=== PATIENT | male | born 1950 | race Caucasian/White ===

== ENCOUNTER → 2016-11-10 | Outpatient (CLI) | payer OTHER ==
[~2016-11-10] MED LIST: AMLO2.5C PO; LISI-526 PO; VYT/1040 PO; ZLFUNK PO
== END | disposition home or self-care (01) ==
LOC: C.CPL 10:57
DX: Z01.810 Encounter for preprocedural cardiovascular examination (principal); R00.1 Bradycardia, unspecified

== ENCOUNTER → 2016-11-27 | Outpatient (CLI) | payer OTHER ==
--- NOTE | 2016-11-27 16:06 | DIAGNOSTIC IMAGING REPORT ---
RIGHT LOWER EXTREMITY VENOUS DOPPLER HISTORY: RT LEG, PAIN/SWELLING, R/O DVT Right COMPARISON STUDY: None. FINDINGS: There is normal compressibility, flow, and augmentation within the right lower extremity deep venous system. A few small subcutaneous fluid collection within the right knee with the largest measuring 4.6 x 4.4 x 1.1 cm. IMPRESSION: No DVT within the right lower extremity. A few small subcutaneous fluid collections at the right knee. This could be due to the recent postoperative change. Electronically signed by: Dipesh Becker M.D. 11/27/2016 4:05 PM Dictated Date/Time: 11/27/2016 4:04 PM
== END | disposition home or self-care (01) ==
LOC: C.ULTR 15:07
DX: M25.461 Effusion, right knee (principal)

== ENCOUNTER → 2017-11-26 | Day surgery (SDC) | payer OTHER ==
[2017-11-09 11:34] VITALS: BMI 26.0
--- NOTE | 2017-11-12 15:51 | PAT Medication Instructions ---
Service Date Nov 12, 2017. Current Home Medication List Amlodipine Besylate-Benazepril (Amlodipine Besylate/Benaz), 1 CAP PO DAILY Celecoxib (CeleBREX), 200 MG PO BID Sertraline (Zoloft), 50 MG PO DAILY Simvastatin (Simvastatin), 1 TAB PO DAILY Medication Instructions For Your Scheduled Surgery - Check with surgeon for instructions: Celecoxib (CeleBREX), 200 MG PO BID - Continue as directed: Amlodipine Besylate-Benazepril (Amlodipine Besylate/Benaz), 1 CAP PO DAILY Sertraline (Zoloft), 50 MG PO DAILY Simvastatin (Simvastatin), 1 TAB PO DAILY If you have any questions please call us at [phone] or [phone] or [phone]
[2017-11-13 14:13] VITALS: BMI 28.0
[2017-11-13 15:16] LABS: BASO ABS # 0.05 K/uL (0-0.2); EOS % 2.8 %; EOS ABS # 0.14 K/uL (0-0.5); HEMATOCRIT 40.5 % (42-52); HEMOGLOBIN 13.6 g/dL (14.0-18.0); IG# 0.01 K/uL (0.00-0.02); LYMPH ABS # 1.83 K/uL (1.2-3.4); MEAN CELL VOLUME 93.5 fL (80-100); MEAN CORPUSCULAR HEMOGLOBIN 31.4 pg (25-34); MEAN CORPUSCULAR HGB CONC 33.6 g/dl (32-36); MEAN PLATELET VOLUME 9.7 fL (7.4-10.4); MONO % 9.6 %; MONO ABS # 0.49 K/uL (0.11-0.59); NEUT % 50.4 %; NEUT ABS # 2.56 K/uL (1.4-6.5); PLATELET COUNT 182 K/uL (130-400); RED CELL DISTRIBUTION WIDTH CV 13.6 % (11.5-14.5); RED CELL DISTRIBUTION WIDTH SD 46.7 fL (36.4-46.3); WHITE BLOOD COUNT 5.08 K/uL (4.8-10.8)
[2017-11-13 15:24] LABS: CREATININE 1.07 mg/dl (0.60-1.40); POTASSIUM 4.2 mmol/L (3.5-5.1)
--- NOTE | 2017-11-13 15:24 | DIAGNOSTIC IMAGING REPORT ---
CHEST 2 VIEWS ROUTINE CLINICAL HISTORY: Preoperative evaluation. COMPARISON STUDY: No previous studies for comparison. FINDINGS: Lung volumes are normal. No pneumothorax or pleural effusion is noted. Cardiac size is normal. Mediastinal contours are normal. There is no evidence for pulmonary edema. There is no consolidation to suggest pneumonia. IMPRESSION: No acute cardiopulmonary findings. Electronically signed by: Clarke Gustafson M.D. 11/13/2017 3:22 PM Dictated Date/Time: 11/13/2017 3:22 PM
[2017-11-13 15:28] LABS: PTT PATIENT 24.2 SECONDS (21.0-31.0)
--- NOTE | 2017-11-25 16:27 | HISTORY & PHYSICAL EXAMINATION ---
DATE OF ADMISSION: 11/26/2017 CHIEF COMPLAINT: Chronic left shoulder pain. HISTORY OF PRESENT ILLNESS: This is a 67-year-old male patient of Dr. Langley'leelee complaining of left shoulder pain since 2014. The patient apparently fell on the ice on an outstretched hand. An MRI confirmed a chronic rotator cuff tear. After failure of conservative treatment, the patient wished to proceed with a left shoulder arthroscopic revision, rotator cuff repair and possible superior capsular reconstruction. PAST MEDICAL HISTORY: Hypertension, hypercholesterolemia, rheumatoid arthritis. SOCIAL HISTORY: Nonsmoker, nondrinker. PAST SURGICAL HISTORY: Right knee, right shoulder, left shoulder. FAMILY HISTORY: Noncontributory. MEDICATIONS: 1. Tramadol 50 mg as needed. 2. Celebrex 200 mg as needed. 3. Amlodipine 2.5/benazepril 10 mg daily. 4. Simvastatin 40 mg daily. 5. Sertraline 50 mg daily. ALLERGIES: No known drug allergies. PHYSICAL EXAMINATION: GENERAL: Well-developed, well-nourished 67-year-old male in no acute distress. He is alert and oriented x3 and pleasant. HEENT: Normocephalic, atraumatic. Extraocular motions are intact. Pupils are equal and reactive to light. HEART: Regular rate and rhythm, no murmurs appreciated. LUNGS: Clear. ABDOMEN: Soft, nontender, bowel sounds present. EXTREMITIES: Left shoulder reveals full range of motion with pain. He has 4/5 strength with pain. He has positive impingement maneuvering. NEUROLOGICAL: Neurovascularly, he is intact in his left upper extremity. DIAGNOSES: Left shoulder rotator cuff tear with a history of hypertension, hypercholesterolemia, rheumatoid arthritis. PLAN: The patient was advised of his diagnosis. Indications, risks, benefits, postop course have all been reviewed. The patient wished to proceed with left shoulder arthroscopic revision rotator cuff repair with a possible superior capsular reconstruction. Necessary consent forms, preoperative testing and clearances will be obtained.
[~2017-11-26] VITALS: Ht 172.7 cm; Wt 82.9 kg
[~2017-11-26] MED LIST changes: -AMLO2.5C PO; +AMLO5CAP3 PO; +ATROPINE SULFATE 0.1 MG/ML 5ML SYR IV PRN; +CEFAZOLIN 2000MG IV PUSH 15 ML IV SCH; +CLB/200 PO; +DEXAMETHASONE SOD INJ 4 MG/ML VIAL ONE; +EpHEDrine SULFATE INJ 50 MG/ML AMP IV PRN; +EpINEphrine HCL INJ 1 MG/ML 1ML SYRINGE ONE; +EpINEphrine INJ 1MG/ML AMP 1 MG/ML AMP ONE; +FENTANYL CITRATE INJ 50 MCG/1 ML 2 ML VIAL IV PRN; +FENTANYL CITRATE INJ 50 MCG/1 ML 2 ML VIAL ONE; +GLYCOPYRROLATE INJ 0.2 MG/ML VIAL ONE; +HYDROmorphone INJ 1 MG/ML SYR IV PRN; +LACTATED RINGER'S 1000ML 1,000 ML IV SCH; +LIDOCAINE HCL 2% 2 ML VIAL (20MG/ML) ONE; -LISI-526 PO; +MIDAZOLAM HCL 1 MG/ML 2ML VIAL ONE; +NEOSTIGMINE METHYLSULFATE 5 MG/5 ML SYR ONE; +ONDANSETRON INJ 2 MG/ML 2 ML VIAL IV PRN; +ONDANSETRON INJ 2 MG/ML 2 ML VIAL ONE; +OXYC-57 PO; +OXYCODONE/ACETAMINOPHEN 5-325 TAB PO PRN; +PROPOFOL IV EMULSION 10 MG/ML 20 ML VIAL ONE; +ROCURONIUM BROMIDE 10 MG/ML 5 ML VIAL ONE; +ROPIVACAINE 0.5% 5 MG/ML 30 ML VIAL ONE; +SERT50TA PO; +SERTRALINE HCL 50 MG TAB PO SCH; +SIMVASTATIN 40 MG TAB PO SCH; +SODIUM CHLORIDE 0.9% 1000ML 1,000 ML IV SCH; -VYT/1040 PO; +ZCR40 PO; -ZLFUNK PO
[2017-11-26 07:32] VITALS: BP 152/91; PULSE 51; TEMP 36.5; O2SAT 95; Ht 172.7 cm; Wt 82.9 kg
--- NOTE | 2017-11-26 08:46 | History & Physical Bridge Note ---
H&P Re-Evaluation Bridge Note: I have examined the patient, reviewed the History & Physical and in the interval since the performance of the History & Physical I have noted the following changes of clinical significance: No changes noted
--- NOTE | 2017-11-26 12:55 | [facility] Post Operative Brief Note ---
Immediate Operative Summary Operative Date Nov 26, 2017. Pre-Operative Diagnosis Recurrent rotator cuff tear left shoulder status post prior rotator cuff repair Post-Operative Diagnosis Same, some recurrent acromial spurs and impingement and glenohumeral osteoarthritis Procedure(s) Performed Arthroscopy left shoulder revision repair rotator cuff with revision decompression and debridement glenohumeral joint and suture material Surgeon Shivam Spray Worker Surgeon(s) Shane CHAPMAN Estimated Blood Loss 10cc Findings Consistent with Post-Op Diagnosis Specimens None Drains None Anesthesia Type General Regional Complication(s) none Disposition Accompanied Pt To Recover: no Disposition: Recovery Room / PACU Overlapping Procedure I was present for: the critical portions of procedure.
--- NOTE | 2017-11-26 13:03 | Discharge Instructions ---
Discharge Instructions Date of Service Nov 26, 2017. Admission Reason for Admission: Left Shoulder Failed Rotator Cuff Repair Discharge Discharge Diagnosis / Problem: Left shoulder revision rotator cuff repair. Discharge Goals Goal(s): Improve function Activity Recommendations Activity Limitations: as noted below . Instructions / Follow-Up Instructions / Follow-Up Please see printed Home instructions and exercise sheets in chart. Follow up with Dr. Langley 10-12 days as scheduled, call [phone] to confirm. Current Hospital Diet Patient's current hospital diet: Discharge Diet Recommended Diet: Regular Diet Procedures Procedures Performed: Arthroscopy left shoulder revision repair rotator cuff with revision decompression and debridement glenohumeral joint and suture material Pending Studies Studies pending at discharge: no Medical Emergencies . Who to Call and When: Medical Emergencies: If at any time you feel your situation is an emergency, please call 911 immediately. . Non-Emergent Contact Non-Emergency issues call your: Primary Care Provider . "Provider Documentation" section prepared by Randall Lynn. . [place] Drug Monitoring Program Search Results: patient reviewed within database, no issues identified
--- NOTE | 2017-11-26 13:53 | Anesthesiology Progress Note ---
Anesthesia Post Op Note Date & Time Nov 26, 2017 at 13:53 Vital Signs Pain Intensity: 0 Vital Signs Past 12 Hours Date Time Temp Pulse Resp B/P (MAP) Pulse Ox O2 Delivery O2 Flow Rate FiO2 11/26/17 13:45 68 15 130/85 100 Room Air 11/26/17 13:40 64 15 143/85 97 Room Air 11/26/17 13:30 36.4 65 10 145/85 100 Room Air 11/26/17 13:20 63 16 154/95 92 Oxymask 10 11/26/17 13:10 65 20 145/81 96 Oxymask 10 11/26/17 13:00 36.0 64 14 149/84 96 Oxymask 10 11/26/17 07:32 36.5 51 18 152/91 (111) 95 Room Air Notes Mental Status: alert / awake / arousable, participated in evaluation Pt Amnestic to Procedure: Yes Nausea / Vomiting: adequately controlled Pain: adequately controlled Airway Patency, RR, SpO2: stable & adequate BP & HR: stable & adequate Hydration State: stable & adequate Anesthetic Complications: no major complications apparent
[2017-11-26 14:40] VITALS: BP 157/88; PULSE 57; TEMP 36.3; O2SAT 98
--- NOTE | 2017-11-26 19:27 | OPERATIVE REPORT ---
DATE OF OPERATION: 11/26/2017 INDICATION FOR PROCEDURE: The patient is a 67-year-old male who had a prior left rotator cuff repair with injury to his shoulder about a year ago. He was unable to have surgery. So I put it off until recently and now with continued pain, presents for a revision rotator cuff repair. He has preoperative MRI demonstrating a large retracted rotator cuff tear but not a lot of atrophy of his muscle. It was suggested possible some of the retraction is due to possibly an L-shaped type tear and supraspinatus as he still has an intact infraspinatus. Looks that he has a satisfactory decompression. He has minimal AC joint arthritis, asymptomatic. He has good mobility. PREOPERATIVE DIAGNOSES: Failed rotator cuff repair, recurrent rotator cuff tear, mild acromioclavicular joint arthritis, left shoulder. POSTOPERATIVE DIAGNOSES: Failed rotator cuff repair, recurrent rotator cuff tear, mild acromioclavicular joint arthritis, left shoulder with some recurrent impingement and acromial spurs, glenohumeral osteoarthritis. PROCEDURE: Revision arthroscopic rotator cuff repair with revision decompression and extensive debridement. SURGEON: Gelacio Langley MD LIVESTOCK RANCH HAND: Randall Lynn PA-C ANESTHESIA: Regional block general. OPERATIVE PROCEDURE: The patient was taken to the operating room, anesthetized with regional block and general anesthetic. [facility] in 70-degree beach chair position. His left shoulder was examined under anesthesia. He had good range of motion and some crepitation. He had relatively thin arm but well muscled individual. His left shoulder was prepped and draped with ChloraPrep. Arthroscopy started with a posterior arthroscopy portal in the soft spot, anterior portal in the rotator interval and lateral portal in the subacromial space and the superior lateral portal for suture anchor placement. The following findings were noted. The glenohumeral joint demonstrated grade 2 and 3 osteoarthritis on the glenoid and humeral head. No exposed bone. There are some generalized fraying, minor delaminations. There was fraying of labrum. He had biceps either ruptured or had a previous tenotomy from previous surgery. He had tendinopathy of subscapularis tear. He had an intact infraspinatus. The supraspinatus was retracted medially and anteriorly but it looked like more of an L-shaped tear with a split between the infraspinatus and supraspinatus and this tear retracted medially and anteriorly. In the subacromial space, there was some recurrent spurs on the mid undersurface of the acromion, a slight few minor spurs on the anterior aspect, otherwise reasonably good decompression was performed. There were some chronic bursal adhesions and scarred bursa tissue. There was 1 loosened suture of the infraspinatus and interspace repair was otherwise intact. Starting in glenohumeral joint, thorough debridement was performed using a 4.5 resector blade to smooth out the frayed joint surfaces on the glenoid and humeral head and the frayed labrum. Then I used a radiofrequency ablator to release the rotator interval tissue just at the edge of the upper subscap tendon and at the base of the coracoid capsule, was released underneath the supraspinatus and anterior infraspinatus to fully mobilize the rotator cuff for repair. Then the edges of the tear were debrided, the anterior edge of the infraspinatus, posterior edge of the supraspinatus. Then in the subacromial space, all the bursal adhesions were released from the underlying rotator cuff and there were some subdeltoid adhesions released anteriorly over the subscap and anterior rotator cuff tissue. Some of the rotator cuff tissue was actually scarred to the acromion and this was carefully teased off with electrocautery to remove that piece from the anterior acromion and I keep it in continuity with the remainder of the supraspinatus tendon tissue, so we had enough tissue for repair. I used a radiofrequency ablator on the undersurface of the acromion to expose the recurrent spurs. The 5.5 bur was used to plane down the acromion to complete type 1 flat shape. Then, the rotator cuff was repaired first using a ring curette to medialize the articular surface about 45 mm, so we could bring the rotator cuff down onto the bone for repair. All this debris was irrigated out. One loose suture was removed with a suture cutter. At this point, we went ahead and did the repair. I used a 5.5 triple loaded Healicoil suture anchor at the supraspinatus footprint and then 4 [id number] Arthrex suture tapes. The triple-loaded anchor sutures, 2/3 were placed to the [id number] sutures using them as a rip-stop suture technique. Sutures were all tied with arthroscopic [place] sliding locking knots, 4 reverse half hitches alternating posts. The repair was secured with the arm at the side. There was no impingement. There is no major tension on the repair. The portal sites were closed with nylon sutures. Sterile dressings were applied and abduction pillow, sling, immobilizer. ARI Martinez was my assistant loan processor and functioned as assistant loan processor for the entire procedure. He assisted in patient positioning, arm positioning, soft tissue retraction, instrument management, and performed the skin closure and brace application and will participate in postoperative care of the patient. I attest to the content of the Intraoperative Record and any orders documented therein. Any exception s are noted below.
== END | disposition home or self-care (01) ==
LOC: C.ACU 07:09
PROVIDERS: ATTEND Orthopaedic Surgery Sports Medicine
DX: S46.012A Strain of muscle(s) and tendon(s) of the rotator cuff of left shoulder, initial encounter (principal); M19.012 Primary osteoarthritis, left shoulder; M75.42 Impingement syndrome of left shoulder; M75.82 Other shoulder lesions, left shoulder; W00.9XXA Unspecified fall due to ice and snow, initial encounter; I10 Essential (primary) hypertension; E78.00 Pure hypercholesterolemia, unspecified; M06.9 Rheumatoid arthritis, unspecified; Z79.899 Other long term (current) drug therapy; F32.9 Major depressive disorder, single episode, unspecified